=== PATIENT | female | born 1975 | race American Indian/Alaskan Native ===

== ENCOUNTER 2019-03-22 04:45 | Emergency (ER) | payer OTHER ==
[2019-03-22] MEDS ORDERED: methylPREDNISolone Sod Succinate 125 MG/2 ML INJ ONE (05:19)
[2019-03-22] MEDS ORDERED: MAGNESIUM SULFATE 2 GM/50 ML BAG IV ONE (05:19)
[2019-03-22] MEDS ORDERED: ALBUTEROL 2.5 MG/3 ML NEBU IH ONE ×2 (05:24→07:52)
[2019-03-22] MEDS ORDERED: IPRATROPIUM 0.02% NEBU 2.5 ML IH ONE (05:24)
[2019-03-22] MEDS ORDERED: SODIUM CHLORIDE 0.9% 1000 ML 1,000 ML ONE (06:34)
[2019-03-22] MEDS ORDERED: EPINEPHrine/PF (1:1,000) 1 MG/1 ML INJ ONE (06:35)
[2019-03-22] MEDS ORDERED: EPINEPHrine/PF (1:1,000) 1 MG/1 ML INJ SUB-Q ONE (07:52)
[2019-03-22] MEDS ORDERED: SODIUM CHLORIDE 0.9% 1000 ML 1,000 ML IV ONE (07:52)
--- NOTE | 2019-03-22 07:53 | Emergency Department Report ---
ED Asthma HPI - General Chief Complaint: Adult Asthma Stated Complaint: wheezing Time Seen by Provider: 03/22/19 06:00 Source: patient, RN notes reviewed Mode of arrival: Stretcher Limitations: Physical Limitation - History of Present Illness Initial Comments: the patient is a 43 year old female who is not known to this provider and who states that she is not she has a past history of asthma, diagnosed when she was an infant. She reports at least one lifetime hospitalization, but no intubations. Presents to the ER with cough, wheezing, shortness of breath, feels like her asthma is "acting up." Triggers include cold weather and change of seasons. She denies recent travel, surgeries, denies chest pain, abdominal pain, leg pain and leg swelling, and otherwise denies DVT and pulmonary embolism risk factors. Initially medicated with albuterol, Atrovent, steroids and magnesium, somewhat improved her symptoms. Patient reassessed by myself, continued her albuterol therapy, given subcutaneous epinephrine, which somewhat improved her symptoms, but did not completely resolve them. Additional albuterol, and epinephrine ordered. Patient indicates that she feels somewhat improved when compared to her initial presentation MD Complaint: "asthma attack", shortness of breath, wheezing -: Gradual Asthma History: childhood onset Severity: severe Context: recent URI, pet exposure, other Associated Symptoms: dry cough - Related Data Current Asthma Therapy: none Previous Rx's Medication Instructions Recorded Last Taken Type Ibuprofen [Motrin] 600 mg PO Q8H PRN #30 tablet 05/13/14 Unknown Rx cephALEXin [Keflex] 500 mg PO Q6H #40 capsule 05/13/14 Unknown Rx Albuterol Sulfate [Proair 90 mcg IH Q4HR PRN #2 [email or web address] 03/22/19 Unknown Rx Respiclick] Benzonatate [Tessalon Perles] 100 mg PO Q8HR PRN #30 capsule 03/22/19 Unknown Rx EPINEPHrine [Epipen 2-Marcos] 0.3 mg IM DAILY PRN #2 ml 03/22/19 Unknown Rx predniSONE [Deltasone] 40 mg PO QDAY #8 tab 03/22/19 Unknown Rx Allergies Allergy/AdvReac Type Severity Reaction Status Date / Time No Known Allergies Allergy Unverified 05/13/14 13:27 ED Review of Systems ROS: Stated complaint: Other details as noted in HPI Constitutional: denies: fever ENT: congestion Respiratory: cough, shortness of breath, SOB with exertion, SOB at rest, wheezing Cardiovascular: denies: syncope Gastrointestinal: denies: abdominal pain Genitourinary: denies: dysuria Musculoskeletal: myalgia Skin: denies: lesions Neurological: weakness Psychiatric: anxiety Hematological/Lymphatic: denies: easy bleeding ED Past Medical Hx - Past Medical History Hx Asthma: Yes - Social History Smoking Status: Never Smoker Substance Use Type: Alcohol - Medications Home Medications: Home Medications Medication Instructions Recorded Confirmed Last Taken Type Ibuprofen [Motrin] 600 mg PO Q8H PRN #30 tablet 05/13/14 Unknown Rx cephALEXin [Keflex] 500 mg PO Q6H #40 capsule 05/13/14 Unknown Rx Albuterol Sulfate [Proair 90 mcg IH Q4HR PRN #2 aer.[email or web address] 03/22/19 Unknown Rx Respiclick] Benzonatate [Tessalon Perles] 100 mg PO Q8HR PRN #30 capsule 03/22/19 Unknown Rx EPINEPHrine [Epipen 2-Marcos] 0.3 mg IM DAILY PRN #2 ml 03/22/19 Unknown Rx predniSONE [Deltasone] 40 mg PO QDAY #8 tab 03/22/19 Unknown Rx ED Physical Exam - General Limitations: Physical Limitation General appearance: alert, anxious, in distress - Head Head exam: Present: atraumatic, normocephalic - Eye Eye exam: Present: normal appearance, EOMI. Absent: nystagmus - ENT ENT exam: Present: normal exam, normal orophraynx, mucous membranes moist, normal external ear exam - Neck Neck exam: Present: normal inspection, full ROM. Absent: tenderness, meningismus - Respiratory Respiratory exam: Present: respiratory distress, wheezes, rhonchi, accessory muscle use - Cardiovascular Cardiovascular Exam: Present: normal rhythm, tachycardia, normal heart sounds. Absent: systolic murmur, diastolic murmur, rubs, gallop - GI/Abdominal GI/Abdominal exam: Present: soft. Absent: distended, tenderness, guarding, rebound, rigid, pulsatile mass - Extremities Exam Extremities exam: Present: normal inspection, full ROM, other (2+ pulses noted in the bilateral upper and lower extremities. There is no long bony tenderness. The muscular compartments are soft. The pelvis is stable.). Absent: pedal edema, calf tenderness - Back Exam Back exam: Present: normal inspection - Neurological Exam Neurological exam: Present: alert, other (there is no facial droop. The tongue is midline. The extraocular movements are intact bilaterally. Moving 4 extremities spontaneously. Sensation is intact to light touch in 4 extremities spontaneously. Age-appropriate mental status.). Absent: motor sensory deficit - Psychiatric Psychiatric exam: Present: anxious - Skin Skin exam: Present: warm, dry, intact, normal color. Absent: rash ED Course Vital Signs 03/22/19 03/22/19 03/22/19 07:15 07:32 08:00 Temperature 99.1 F Pulse Rate 132 H 139 H 132 H Pulse Rate [ Anterior Bilateral Throughout] Respiratory 31 H 23 20 Rate Respiratory Rate [Anterior Bilateral Throughout] Blood Pressure 132/58 133/62 139/84 [Left] O2 Sat by Pulse 95 93 94 Oximetry 03/22/19 03/22/19 09:28 10:00 Temperature Pulse Rate 132 H Pulse Rate [ 125 H Anterior Bilateral Throughout] Respiratory 21 Rate Respiratory 19 Rate [Anterior Bilateral Throughout] Blood Pressure 117/64 [Left] O2 Sat by Pulse 97 Oximetry - Reevaluation(s) Reevaluation #1: 03/22/19 08:19 Differential diagnosis, including not limited to: Bronchitis, asthma exacerbation, pneumonia Assessment and plan: 43-year-old female with history of asthma, who is low risk by well's criteria, with no DVT or pulmonary embolism risk factors, presenting with probable asthma exacerbation. Laboratory studies, EKG, x-ray of the chest pending, initial therapy is ordered, repeat therapies ordered, the patient continues to wheeze and have shortness of breath after second round of treatment, including second round of subcutaneous epinephrine, plan to admit patient to the medical service for asthma exacerbation. Discussed this with the patient, who verbalized understanding, and was amenable to this plan of care. Reevaluation #2: 03/22/19 09:24 X-ray the chest is negative for acute disease Reevaluation #3: 03/22/19 10:36 Patient reassessed multiple times. Wheezing resolved. Tachypnea resolved. Retractions resolved. Persistent tachycardia is reviewed and appreciated, likely secondary to albuterol and epinephrine. Patient walking around the ER without difficulty, and endorses readiness for discharge. We discussed return precautions. The patient verbalizes understanding. She indicates that she is reliable to follow up as an outpatient. ED Medical Decision Making - Lab Data Result diagrams: 03/22/19 05:40 03/22/19 05:40 - EKG Data -: EKG Interpreted by Me EKG shows normal: sinus rhythm Rate: tachycardia - EKG Data When compared to previous EKG there are: previous EKG unavailable 03/22/19 08:20 There is no prior EKG available for comparison. The EKG shows a sinus tachycardia, normal axis, QTC within normal limits, atrial enlargement, poor R wave progression, rate 116 bpm, no prior for comparison, not a STEMI - Radiology Data Radiology results: pending Critical Care Time: Yes Critical care time in (mins) excluding proc time.: 60 Critical care attestation.: If time is entered above; I have spent that time in minutes in the direct care of this critically ill patient, excluding procedure time. ED Disposition Clinical Impression: Asthma exacerbation Qualifiers: Asthma severity: unspecified severity Asthma persistence: unspecified Qualified Code(s): J45.901 - Unspecified asthma with (acute) exacerbation Disposition: TO HOME OR SELFCARE Is pt being admited?: No Does the pt Need Aspirin: No Condition: Stable Additional Instructions: Take a breathing medication as directed, steroids as directed, use Tessalon Per les for cough as needed and directed, use epinephrine pen only if patient develops severe shortness of breath, wheezing, inability to speak, and ability to breathe. This patient develops severe shortness of breath, wheezing, and ability to speak, inability to breathe, or any new, worsening or different symptoms, please return to the emergency room right away. Please drink 4-6 cups of water per day for the next week, follow-up with the primary care doctor or salesforce specialist within the next 2 weeks. Please return to the emergency room right away with new, worsening or different symptoms, or symptoms not present on the initial emergency room evaluation. Referrals: CORTEZ SAINI MD [Staff Physician] - 3-5 Days [facility] [Provider Group] - 3-5 Days [facility] [Provider Group] - 3-5 Days
[2019-03-22 08:26] LABS: BUN/Creatinine Ratio 8; Blood Urea Nitrogen 6 mg/dL (7-17); Calcium 9.6 mg/dL (8.4-10.2); Hemolysis Index 6
[2019-03-22 08:29] LABS: INR 1.03 (0.87-1.13)
--- NOTE | 2019-03-22 09:18 | XRay Report ---
CHEST 1 VIEW INDICATION: Shortness of breath. COMPARISON: One day prior. FINDINGS: Support devices: Unchanged. Heart: Stable. Lungs/Pleura: No acute pulmonary or pleural findings. IMPRESSION: 1. No significant change. Signer Name: Douglas Hayden MD Signed: 03/22/2019 5:49 AM Workstation Name: [id number]
[2019-03-22 10:10] LABS: Hematocrit 41.7 % (30.3-42.9); Hemoglobin 14.1 gm/dl (10.1-14.3); Mean Corpuscular HGB Conc 34 % (30-34); Mean Corpuscular Volume 99 fl (79-97); Platelet Count 260 K/mm3 (140-440); Red Blood Count 4.19 M/mm3 (3.65-5.03)
[2019-03-22 10:21] VITALS: BP 117/64
== END 2019-03-22 11:22 | disposition home or self-care (01) ==
LOC: ED 04:45
DX: J45.901 Unspecified asthma with (acute) exacerbation (principal); Z79.1 Long term (current) use of non-steroidal anti-inflammatories (NSAID); Z79.899 Other long term (current) drug therapy
CPT/HCPCS: 36415; 71045; 80048; 82550; 83735; 84702; 85027; 85610; 93005; 93010; 94640; 96360; 96372; 99284; J0171; J2930; J3475; J7030; 94644